=== PATIENT | male | born 1960 | race Two or more races ===

== ENCOUNTER 2019-08-17 05:02 | Inpatient (IN) | payer OTHER ==
[~2019-08-17] VITALS: Ht 170.2 cm; Wt 90.4 kg
[2019-08-17] VITALS (15 sets, daily range): BP systolic 95–164; BP diastolic 44–102
[2019-08-17] MEDS ORDERED: MIDAZOLAM HCL 2 MG/2ML VIAL ONE (06:10)
[2019-08-17] MEDS ORDERED: CEFAZOLIN SODIUM/DEXTROSE,ISO 50 ML IV ONE (06:11)
[2019-08-17] MEDS ORDERED: oxyCODONE HCL SR 10MG TAB.SR.12H PO ONE (06:11)
[2019-08-17] MEDS ORDERED: MORPHINE SULFATE/PF 10 MG/10ML (1MG/ML) AMPUL ONE (06:11)
[2019-08-17] MEDS ORDERED: SEVOFLURANE 250 ML BOTTLE IH ONE (06:11)
[2019-08-17] MEDS ORDERED: ACETAMINOPHEN 325 MG TABLET ONE (06:11)
[2019-08-17] MEDS ORDERED: CELECOXIB 100 MG CAPSULE ONE (06:11)
[2019-08-17] MEDS ORDERED: SCOPOLAMINE HBR 1 EA PATCH.TD72 TD ONE (06:12)
[2019-08-17] MEDS ORDERED: DESFLURANE 240 ML BOTTLE IH ONE (06:12)
[2019-08-17] MEDS ORDERED: BUPIVACAINE 0.75% DEXT-PF 2 ML AMPUL ONE (06:29)
[2019-08-17] MEDS ORDERED: ANESTHESIA TRAY IN PYXIS 1 EA TRAY MC ONE (06:33)
[2019-08-17] MEDS ORDERED: BACITRACIN 50000 UNITS/VIAL ONE (06:33)
[2019-08-17] MEDS ORDERED: TRANEXAMIC ACID 3,000 MG in SODIUM CHLORIDE IRRIG SOLUTION 70 ML IR ONE (07:30)
--- NOTE | 2019-08-17 10:15 | NUR ---
New admission Pt. arrived from S/P right hip arthroplasty accompanied by OR nurse and staffs. Pt AO x 3, awake. Bruce pain, intact dressing on right hip. Pt is on rush catheter, clear yellow urine color. CAll light within reach, will continue to monitor.
[2019-08-17] MEDS: IV NS 0.9% 1,000 ML IV PRN (11:09)
[2019-08-17] MEDS ORDERED: ZOFRAN 4mg/2ML IV PRN (12:00)
[2019-08-17] MEDS ORDERED: COLACE 250 MG CAPSULE PO PRN (12:00)
[2019-08-17] MEDS ORDERED: TYLENOL 650 MG TABLET PO PRN (12:00)
[2019-08-17] MEDS ORDERED: HYDROMORPHONE 1 MG/1 ML DISP.SYRIN IV PRN (12:00)
[2019-08-17] MEDS ORDERED: DULCOLAX 10 MG/SUPP.RECT RC PRN (12:00)
[2019-08-17] MEDS ORDERED: NALOXONE HCL 0.4 MG/ML AMPUL IV PRN (12:00)
[2019-08-17] MEDS ORDERED: SENOKOT 8.6 MG TABLET PO PRN (12:00)
[2019-08-17 12:05] LABS: BASOPHILS % (AUTO) 0.2 % (0.0-2.0); EOSINOPHILS % (AUTO) 0.1 % (0.0-6.0); HEMATOCRIT 41 % (39-51); LYMPHOCYTES # (AUTO) 0.6 /CMM (0.8-4.8); LYMPHOCYTES % (AUTO) 4.7 % (20.0-44.0); MEAN CORPUSCULAR HGB CONC 32 g/dl (31.0-36.0); MEAN CORPUSCULAR VOLUME 102 fL (80-96); MONOCYTES # (AUTO) 0.5 /CMM (0.1-1.30); MONOCYTES % (AUTO) 3.7 % (2.0-12.0); NEUTROPHILS % (AUTO) 91.3 % (43.0-81.0); PLATELET COUNT (AUTO) 164 /CMM (150-450); RED BLOOD CELL COUNT(AUTO) 3.96 MIL/uL (4.5-6.0); WHITE BLOOD COUNT (AUTO) 13.1 K/uL (4.3-11.0)
[2019-08-17 12:15] LABS: CALCIUM, SERUM 8.2 mg/dL (8.5-10.1); CREATININE 1.3 mg/dL (0.6-1.3); MAGNESIUM 1.6 mg/dL (1.8-2.4); PHOSPHORUS 2.7 mg/dL (2.5-4.9); POTASSIUM 4.1 mmol/L (3.5-5.1)
[2019-08-17] MEDS ORDERED: diphenhydrAMINE HCL 25 MG CAPSULE PO PRN (12:30)
[2019-08-17] MEDS: ANCEF 1 GM/50 ML D5W IV SCH ×4 (14:58→23:50)
--- NOTE | 2019-08-17 18:30 | NUR ---
MS/RN Closing Note Pt in bed, resting comfortably. DeMS/RN Closing Note Pt in bed, resting comfortably. Denies chest pain or any discomfort, skin is warm to touch, clean/dry, intact IV site. dnies s/p right hip sx pain or any discomfort. Respiratory even and unlabored, no SOB or distress observed. Garcia catheter care given. Call light within reach, will endorse to maintenance technician 2nd shift.
--- NOTE | 2019-08-17 19:25 | NUR ---
MS RN OPENING NOTES RECEIVED PATIENT FROM MORNING SHIFT ALERT AND ORIENTED X 3. VERBALLY RESPONSIVE AND ABLE TO FOLLOW DIRECTIONS. BREATHING REGULAR AND UNLABORED ON ROOM AIR. LEFT FOREARM G18 IV LINE PATENT AND INTACT, INFUSING WELL WITH NO BLEEDING OR S/S OF INFECTION/INFILTRATION NOTED. BODY ASSESSMENT DONE, S/P RIGHT HIP ARTHROPLASTY WITH NO ACTIVE BLEEDING SEEN, DRESSING INTACT CLEAN AND DRY. ON CARDIAC MONITORING WITH NSR AT 75bpm. COMPLAINED OF 7/10 RIGHT HIP PAIN. NON-PHARMACOLOGICAL INTERVENTIONS PROVIDED. BED LOW AND LOCKED ON SEMI FOWLERS POSITION. CALL LIGHT IN REACH. WILL CONTINUE TO MONITOR.
[2019-08-17] MEDS: HYDROCODONE/APAP 5/325MG 1 EACH TABLET PO PRN (19:46)
--- NOTE | 2019-08-17 20:00 | NUR ---
MS RN NOTES COMPLAINED OF 7/10 RIGHT HIP PAIN. NORCO 5/325 2TABS GIVEN BY MOUTH. NON-PHARMACOLOGICAL INTERVENTIONS PROVIDED. VITAL SIGNS WNL. WILL CONTINUE TO MONITOR.
[2019-08-17] MEDS ORDERED: AMBIEN 5 MG TABLET PO PRN (22:00)
[2019-08-17] MEDS: RIVAROXABAN 10 MG TABLET PO SCH (22:12)
[2019-08-18] MEDS: IV NS 0.9% 1,000 ML IV PRN ×2 (02:38→19:35)
--- NOTE | 2019-08-18 06:30 | NUR ---
MS RN CLOSING NOTES PATIENT IN BED ALERT AND ORIENTED X 3. VERBALLY RESPONSIVE AND ABLE TO FOLLOW DIRECTIONS. BREATHING REGULAR AND UNLABORED ON ROOM AIR. LEFT FOREARM G18 IV LINE PATENT AND INFUSING WELL. S/P RIGHT HIP ARTHROPLASTY WITH NO ACTIVE BLEEDING SEEN, DRESSING INTACT CLEAN AND DRY. MAINTAINED ON CARDIAC MONITORING WITH NSR AT 78bpm. ROSEN CATH INTACT DRAINING CLEAR YELLOW URINE 600cc OUTPUT. NO COMPLAINTS OF PAIN/DISCOMFORT REPORTED OF THE TIME. BED LOW AND LOCKED ON SEMI FOWLERS POSITION. CALL LIGHT IN REACH. WILL ENDORSE TO MORNING SHIFT FOR MAXIMILIAN.
[2019-08-18 07:16] LABS: CALCIUM, SERUM 8.3 mg/dL (8.5-10.1); CREATININE 1.2 mg/dL (0.6-1.3); MAGNESIUM 1.7 mg/dL (1.8-2.4); PHOSPHORUS 3.2 mg/dL (2.5-4.9); POTASSIUM 4.5 mmol/L (3.5-5.1)
[2019-08-18 07:26] LABS: BASOPHILS % (AUTO) 0.3 % (0.0-2.0); EOSINOPHILS % (AUTO) 1.7 % (0.0-6.0); HEMATOCRIT 34 % (39-51); HEMOGLOBIN 11.5 g/dL (13.5-17.5); LYMPHOCYTES # (AUTO) 1.5 /CMM (0.8-4.8); LYMPHOCYTES % (AUTO) 20.8 % (20.0-44.0); MEAN CORPUSCULAR HGB CONC 34 g/dl (31.0-36.0); MEAN CORPUSCULAR VOLUME 99 fL (80-96); MONOCYTES # (AUTO) 0.6 /CMM (0.1-1.30); MONOCYTES % (AUTO) 7.9 % (2.0-12.0); NEUTROPHILS % (AUTO) 69.3 % (43.0-81.0); PLATELET COUNT (AUTO) 167 /CMM (150-450); RED BLOOD CELL COUNT(AUTO) 3.46 MIL/uL (4.5-6.0); WHITE BLOOD COUNT (AUTO) 7.2 K/uL (4.3-11.0)
[2019-08-18 08:00] VITALS: BP 101/72
--- NOTE | 2019-08-18 08:00 | NUR ---
MS RN OPENING NOTES RECEIVED PATIENT ALERT AND ORIENTED X 3. VERBALLY RESPONSIVE AND ABLE TO FOLLOW DIRECTIONS. BREATHING REGULAR AND UNLABORED ON ROOM AIR. LEFT FOREARM G18 IV LINE PATENT AND INTACT, INFUSING WELL WITH NO BLEEDING OR S/S OF INFECTION/INFILTRATION NOTED. S/P RIGHT HIP ARTHROPLASTY WITH NO ACTIVE BLEEDING SEEN, DRESSING INTACT CLEAN AND DRY.NON-PHARMACOLOGICAL INTERVENTIONS PROVIDED. BED LOW AND LOCKED ON SEMI FOWLERS POSITION. CALL LIGHT WITHIN REACH. WILL CONTINUE TO MONITOR.
[2019-08-18] MEDS ORDERED: METH2.5T14 PO (08:04)
[2019-08-18] MEDS ORDERED: OXYC1TAB8 PO (08:04)
[2019-08-18] MEDS ORDERED: LISI40TA4 PO (08:04)
[2019-08-18] MEDS ORDERED: SIMV10TA98 PO (08:04)
[2019-08-18] MEDS ORDERED: NAPR-1009 PO (08:04)
[2019-08-18] MEDS ORDERED: RIVA10TA PO (08:04)
[2019-08-18] MEDS: HYDROCODONE/APAP 5/325MG 1 EACH TABLET PO PRN ×2 (08:29→20:25)
[2019-08-18] MEDS: Magnesium 1GM/D5W 100ML PREMIX 100 ML IV SCH ×2 (11:10→12:11)
--- NOTE | 2019-08-18 15:30 | NUR ---
ROSEN CATH REMOVED WITH 3,100 ML CLEAR YELLOW URINE TOTAL OUTPUT.PT TOLERATED WELL.
[2019-08-18 16:00] VITALS: BP 113/76
[2019-08-18] MEDS: RIVAROXABAN 10 MG TABLET PO SCH ×2 (17:00→17:51)
--- NOTE | 2019-08-18 18:19 | NUR ---
PT VOIDED IN THE TOILET AND WAS DRIPPING FRESH BLOOD URINE OUT OF PT'S PENIS. ENCOURAGED INCREASE FLUIDS.PT HAD CLEAR YELLOW URINE IN THE ROSEN BAG WHEN IT WAS REMOVED AT 1530 WITH NO BLEEDING NOTED.
--- NOTE | 2019-08-18 18:21 | NUR ---
WILL HOLD XARELTO DUE TO BLEEDING NOTED AND WILL MONITOR.
--- NOTE | 2019-08-18 18:22 | NUR ---
DISCARDED OPENED XARELTO PILL IN THE MED DISPENSER BIN WITNESSED BY CO RN,GIULIANO.
--- NOTE | 2019-08-18 18:30 | NUR ---
PT STARTED PASSING OUT SMALL AMOUNTS OF BLOOD CLOTS FROM HIS PENIS.
--- NOTE | 2019-08-18 19:50 | NUR ---
MS RN OPENING NOTES RECEIVED PATIENT ALERT AND ORIENTED X 3. VERBALLY RESPONSIVE AND ABLE TO FOLLOW DIRECTIONS. BREATHING REGULAR AND UNLABORED ON ROOM AIR. IV ACCESS ON HIS LEFT FOREARM G18 IV LINE PATENT AND INTACT, INFUSING WELL WITH NO BLEEDING OR S/S OF INFECTION/INFILTRATION NOTED. S/P RIGHT HIP ARTHROPLASTY WITH NO ACTIVE BLEEDING SEEN, DRESSING INTACT CLEAN AND DRY. SAFETY MEASURES INPLACE, PROVIDED COMFORT,ALL NEEDS ATTENDED, BED LOW AND LOCKED ON SEMI FOWLERS POSITION. CALL LIGHT WITHIN EASY REACH. WILL CONTINUE TO MONITOR ACCORDINGLY.
[2019-08-18 20:00] VITALS: BP 125/81
[2019-08-18 20:42] VITALS: BP 125/81
--- NOTE | 2019-08-18 22:33 | NUR ---
POD#1 S/P Right NAVA. He is alert and oriented. He lives with his friend/roommate in a single level dwelling in [place]. Prior to admission, he was ambulatory and independent with adl's. He has access to a walker, wheelchair and shower chair. He does not want to go to SNF or ARU, he prefer to return home with home PT. His roommate Deborah [phone] will provide transportation. Addendum: 08/18/19 at 2233 by JUDSON STONE RN Amended: Links added.
[2019-08-19] MEDS: HYDROCODONE/APAP 5/325MG 1 EACH TABLET PO PRN ×2 (06:58→20:00)
--- NOTE | 2019-08-19 07:13 | NUR ---
RN NOTES ALL NEEDS ATTENDED AND MET, ABLE TO REST AND SLEPT WITH LONG INTERVALS, SAFETY MEASURES IN PLACE, NO SIGNS OF BLEEDING NOTED THROUGHOUT THE SHIFT. ENDORSED TO AM NURSE FOR CONTINUITY OF CARE.
--- NOTE | 2019-08-19 07:37 | NUR ---
MS RN OPENING NOTES RECEIVED PATIENT IN BED, AWAKE, A/O X 4. PATIENT BREATHING ON ROOM AIR. BREATHING IS EVEN AND SYMMETRICAL. NO ACUTE SIGNS OF DISTRESS NOTED. NO SOB AT THIS TIME. PATIENT DENIES PAIN AT THIS MOMENT. LFA IV GAUGE # 18 PRESENT AND INTACT RUNNING AT 75 MLS/HR. SAFETY PRECAUTIONS IN PLACE; BED IN LOW POSITION AND LOCKED, RAILS UP X 2, CALL LIGHT WITHIN REACH. WILL CONTINUE TO MONITOR PATIENT.
[2019-08-19 07:47] LABS: CALCIUM, SERUM 8.7 mg/dL (8.5-10.1); CREATININE 1.1 mg/dL (0.6-1.3); MAGNESIUM 1.9 mg/dL (1.8-2.4); POTASSIUM 4.6 mmol/L (3.5-5.1)
[2019-08-19 08:00] VITALS: BP 129/70
--- NOTE | 2019-08-19 13:02 | NUR ---
MS RN NOTES PATIENT COMPLAINING OF PAIN IN THE RIGHT HIP. PAIN LEVEL 9/10. GAVE PRN DILAUDID. WILL REASSESS PATIENT SOON.
[2019-08-19 16:00] VITALS: BP 142/80
[2019-08-19] MEDS: RIVAROXABAN 10 MG TABLET PO SCH (16:49)
--- NOTE | 2019-08-19 18:36 | NUR ---
MS RN OPENING NOTES RECEIVED IN BED, AWAKE, A/O X 4. PATIENT BREATHING ON ROOM AIR. BREATHING IS EVEN AND SYMMETRICAL. NO ACUTE SIGNS OF DISTRESS NOTED. NO SOB AT THIS TIME. LFA IV GAUGE # 18 PRESENT AND INTACT RUNNING AT 75 MLS/HR. DURING THE DAY PATIENT COOPERATIVE AND CALM. ONE EPISODE OF RIGHT HIP PAIN WAS TREATED WITH PRN DILAUDID. NO PAIN AT THIS MOMENT. SAFETY PRECAUTIONS IN PLACE; BED IN LOW POSITION AND LOCKED, RAILS UP X 2, CALL LIGHT WITHIN REACH. WILL ENDORSE TO [employer]ISTORY PROFESSOR NURSE.
--- NOTE | 2019-08-19 19:38 | NUR ---
RN NOTES RECEIVED PATIENT AWAKE ALERT ORIENTED X4, NO SIGNS OF ACUTE DISTRESS NOTED, DENIES ANY PAIN AT THIS TIME, KEEP CLEAN DRY AND COMFORTABLE. BREATHING EVEN AND UNLABORED, CALL LIGHT WITHIN EASY REACH. IV ACCESS INTACT AND PATENT, NO SIGNS OF INFILTRATION NOTED, ALL NEEDS ATTENDED, WILL CONTINUE TO MONITOR ACCORDINGLY.
[2019-08-19 20:00] VITALS: BP 108/74
[2019-08-20] MEDS: HYDROCODONE/APAP 5/325MG 1 EACH TABLET PO PRN ×4 (02:05→22:06)
--- NOTE | 2019-08-20 07:21 | NUR ---
RN NOTES ALL NEEDS ATTENDED AND MET, ABLE TO REST AND SLEPT AT INTERVALS, NO DISTRESS NOTED, SAFETY MEASURES INPLACE, PATIENT WAS ABLE TO MANAGED PAIN LEVEL, CALL LIGHT WITHIN EASY REACH, KEEP CLEAN DRY AND COMFORTABLE, ENDORSED TO AM NURSE FOR CONTINUITY OF CARE.
[2019-08-20 08:00] VITALS: BP 99/45
[2019-08-20] MEDS: IV NS 0.9% 1,000 ML IV PRN (08:55)
[2019-08-20 11:57] LABS: BASOPHILS % (AUTO) 0.4 % (0.0-2.0); EOSINOPHILS % (AUTO) 2.7 % (0.0-6.0); HEMATOCRIT 34 % (39-51); HEMOGLOBIN 11.4 g/dL (13.5-17.5); LYMPHOCYTES # (AUTO) 1.2 /CMM (0.8-4.8); LYMPHOCYTES % (AUTO) 15.2 % (20.0-44.0); MEAN CORPUSCULAR HGB CONC 34 g/dl (31.0-36.0); MEAN CORPUSCULAR VOLUME 98 fL (80-96); MONOCYTES # (AUTO) 0.6 /CMM (0.1-1.30); MONOCYTES % (AUTO) 7.7 % (2.0-12.0); NEUTROPHILS # (AUTO) 5.8 /CMM (1.8-8.9); PLATELET COUNT (AUTO) 200 /CMM (150-450); RED BLOOD CELL COUNT(AUTO) 3.43 MIL/uL (4.5-6.0); WHITE BLOOD COUNT (AUTO) 7.8 K/uL (4.3-11.0)
[2019-08-20 16:00] VITALS: BP 115/70
[2019-08-20] MEDS: RIVAROXABAN 10 MG TABLET PO SCH (17:00)
--- NOTE | 2019-08-20 18:00 | NUR ---
xarelto held as per request of dr. dixon due to penile bleeding. additionally some scant serosanguinous drainage from rt. hip dressing.med x 2 for pain with norco tabs.
[2019-08-20 20:00] VITALS: BP 108/61
[2019-08-20 20:43] VITALS: BP 108/61
--- NOTE | 2019-08-20 21:23 | NUR ---
awake and alert speech clear good eye contact a/ox4. pleasent and smiling snack served . right hip dressing CDI right foot PPP noted +l edema right leg tender to touch warmth felt when leg touched, moves foot w/o pain. urinal at the bedside
[2019-08-21] MEDS: HYDROCODONE/APAP 5/325MG 1 EACH TABLET PO PRN ×2 (00:14→10:36)
--- NOTE | 2019-08-21 07:00 | NUR ---
MS/RN Opening Note Received pt in bed comfortably, pt AO x 4, able to responds all stimuli. Skin is warm to touch, clean/dry, intact IV site. Denies pain. Respiratory even and unlabored, kept lower position of bed with elevated HOB. Call light with in reach, will continue to monitor.
--- NOTE | 2019-08-21 07:19 | NUR ---
ending notes: Refused to have his IV fluid after $AM. stated they bothered himnot allowing him to move about, he is good about drinking fluid right foot PPP
[2019-08-21 08:00] VITALS: BP 111/90
--- NOTE | 2019-08-21 12:00 | NUR ---
Pt stated "skin got irritated so I scratched" on left inner buttock.
--- NOTE | 2019-08-21 12:00 | NUR ---
Given discharge instruction include continue to medication, side effect fallow up PCP and verbally under staining, patient denies pain or any discomfort, noticed skin excoriation on left inner buttock w:2.5cm x L:5 cm, picture taken. pt is in stable condition.
== END 2019-08-21 12:15 | disposition home health service (06) | DRG 470 ==
LOC: DS 05:02 → MED 08:41
PROVIDERS: ADMIT Internal Medicine; ATTEND Internal Medicine
PROC: 0SR90J9 Replacement of Right Hip Joint with Synthetic Substitute, Cemented, Open Approach (ICD-10-PCS; principal; 2019-08-17)
DX: M16.11 Unilateral primary osteoarthritis, right hip (principal); D62 Acute posthemorrhagic anemia; I10 Essential (primary) hypertension; Z96.659 Presence of unspecified artificial knee joint; R31.9 Hematuria, unspecified; Z79.01 Long term (current) use of anticoagulants
CPT/HCPCS: 36415; 71045-TC; 80048-TC; 83735-TC; 84100-TC; 85025-TC; 86850-TC; 86921-TC; 87081-TC; 88305-TC; 88311-TC; 97110-TC; 97112-TC; 97116-TC; 97530-TC; A4217; A6209; A6402; C1776; G0378; J0690; J1170; J2250; J2274; J2704; J3475; J3490; J7030; J7060